=== PATIENT | male | born 1950 | race Caucasian/White ===

== ENCOUNTER 2018-01-04 09:32 | Outpatient (CLI) | payer MEDICARE, OTHER ==
[~2018-01-04] VITALS: Ht 172.7 cm; Wt 72.6 kg
[2018-01-04] VITALS (12 sets, daily range): BP systolic 107–145; BP diastolic 63–79
[~2018-01-04 09:32] MED LIST: AMIO200T4 PO; ASPI-482 PO; ASPI325T11 PO; ASPI325T8 PO; BUPR150T9 PO; CLOP75TA57 PO; EZET10TA18 PO; FERR325T72 PO; FURO-68 PO; IODIXANOL 320 MG/ML 100 ML VIAL. ONE; LIDOCAINE 1% Multi-Dose 50 ML VIAL. ONE; LISI-130 PO; METO-239 PO; METO25TA2 PO; NAPR-634 PO; NITR0.4T22 SL; OMEG1CAP28 PO; OMEG1CAP52 PO; OXYC-323 PO; POTA20TA12 PO; SIMV5TAB5 PO
[2018-01-04 09:53] LABS: HEMATOCRIT 51.5 % (39.0-53.0); RED BLOOD COUNT 5.29 x10^6/uL (4.30-5.70); RED CELL DISTRIBUTION WIDTH 13.8 % (11.5-14.5); WHITE BLOOD COUNT 7.9 x10^3/uL (4.0-11.0)
[2018-01-04 10:03] LABS: PROTHROMBIN TIME PATIENT 13.1 SEC (11.7-14.0)
[2018-01-04 10:12] LABS: CALCIUM 9.1 mg/dL (8.5-10.1); CREATININE 1.1 mg/dL (0.7-1.3); GFR 66.4; POTASSIUM 4.1 mmol/L (3.5-5.1)
[2018-01-04] MEDS ORDERED: IODIXANOL 320 MG/ML 100 ML VIAL. ONE (10:21)
[2018-01-04] MEDS ORDERED: fentaNYL PF VIAL 100 MCG/2 ML VIAL ONE (11:21)
[2018-01-04] MEDS ORDERED: MIDAZOLAM HCL/PF 2 MG/2 ML VIAL. ONE (11:21)
[2018-01-04] MEDS ORDERED: LIDOCAINE 1% Multi-Dose 50 ML VIAL. INJ ONE (12:00)
[2018-01-04] MEDS ORDERED: IODIXANOL 320 MG/ML 100 ML VIAL. IART ONE (12:00)
[2018-01-04] MEDS ORDERED: HEPARIN for IV BOLUS 10,000 UNIT/10 ML VIAL. IART ONE (12:00)
[2018-01-04] MEDS ORDERED: fentaNYL PF VIAL 100 MCG/2 ML VIAL IV ONE (12:00)
[2018-01-04] MEDS ORDERED: MIDAZOLAM HCL/PF 2 MG/2 ML VIAL. IV ONE (12:00)
[2018-01-04] MEDS ORDERED: IV 1/2 NORMAL SALINE 1,000 ML IV SCH (12:15)
[2018-01-04] MEDS ORDERED: NITROGLYCERIN SUBLINGUAL 0.4 MG BOTTLE OF 25. SL PRN (12:15)
[2018-01-04] MEDS ORDERED: ACETAMINOPHEN 325 MG TABLET. PO PRN (12:15)
[2018-01-04] MEDS ORDERED: 0.9 % SODIUM CHLORIDE 10 ML DISP.SYRIN. IV PRN (12:15)
--- NOTE | 2018-01-04 12:15 | PDOC ---
MODERATE SEDATION ASSESSMENT RISKS/ALTERNATIVES Risks/Alternatives Risks and alternatives of this type of sedation and procedure discussed with: RISK/ALTERNATIVES: Patient H & P ON CHART H & P H & P on chart and reviewed for co-morbid conditions and appropriate labs. H&P ON CHART: Yes STATUS PREG STATUS ASSESSED: N/A MEDS/ALLERGIES REVIEWED Meds/Allergies Reviewed Medications and Allergies including time and route of recently administered narcotics and sedatives. MEDS/ALLERGIES REVIEWED: Yes ASA RATING ASA RATING: III AIRWAY ASSESSMENT Airway Assessment Airway patency, oral function limitations, presence of caps, crowns, dentures, partials, and ability to extend neck assessed. AIRWAY ASSESSMENT: Yes MALLAMPATI SCORE MALLAMPATI SCORE: II PRE-SEDATION ASSESSMENT PRE-SEDATION ASSESSMENT: Yes CINDA CAMARILLO MD Jan 04, 2018 12:15
--- NOTE | 2018-01-04 13:31 | CARD ---
MR#: [id number] Date of Study: 01/04/2018 Ordering Physician: CINDA VU, Referring Physician: CINDA VU Tech: RT Leatha (R) APPROVED REPORT Technologist: RT Leatha (R) Nurse: Elin Lebron R.N. Procedure(s) performed: Aortogram with bilateral lower extremity runoff Moderate sedation: 32 min INDICATION The indication(s) include : Peripheral artery disease with claudication and abnormal arterial duplex scan. PROCEDURE NARRATIVE After explaining the risks, benefits and alternative options, informed consent was obtained from madhuri ent. Patient was brought to the cardiac Field Representative/Health Education and his left groin was prepped and draped in the usu al fashion. 20 mL of 2% lidocaine was infiltrated into the skin and subcutaneous tissues for local an esthesia. Arterial access was obtained in the left common femoral artery and a 5 Yoruba sheath was in serted. 5 Yoruba pigtail catheter was used to perform aortogram with bilateral lower extremity runoff . Patient tolerated the procedure well. Hemostasis was achieved using manual compression. There were no immediate complications. The following findings were noted. FINDINGS 1. No significant stenosis involving the distal descending aorta and bilateral common iliac arteries 2. The right external iliac artery showed 40% stenosis in the distal segment. The left external matthias c artery showed 40% stenoses involving the mid and distal segments. 3. Bilateral common femoral arteries showed evidence of previous endarterectomy without any signific ant stenosis. 4. The superficial femoral arteries bilaterally a chronically and totally occluded. 5. Bilateral femoropopliteal bypass grafts are widely patent. 6. The right anterior tibial artery showed 100% chronic total occlusion in the proximal segment. The right posterior tibial artery showed 100% chronic total occlusion in the midsegment. The right peron eal artery showed 100% chronic total occlusion in the midsegment. There is very distal reconstitution of peroneal and posterior tibial arteries and also the dorsalis pedis artery via collaterals. 7. The left anterior tibial artery showed 100% chronic total occlusion in the midsegment. The left t ibioperoneal trunk showed 50% stenosis. The left posterior tibial artery showed severe diffuse diseas e in the proximal to midsegment followed by 100% chronic total occlusion in the mid to distal segment . The peroneal artery had good flow. There is distal reconstitution of the posterior tibial artery vi a collaterals. Conclusion Widely patent bilateral femoropopliteal bypass grafts without any significant inflow disease and jak re diffuse below the knee disease bilaterally as described above without any lesions that could be in tervened upon. Recommendations Optimization of medical therapy including initiation of Plavix and Pletal. Vascular risk factor modification including complete smoking cessation. Regular exercise regimen. Signed by : Cinda Vu, Electronically Approved : 01/04/2018 13:30:35
[2018-01-04] MEDS ORDERED: CLOP75TA PO (15:26)
[2018-01-04] MEDS ORDERED: CILO100T PO (15:27)
[2018-01-04] MEDS ORDERED: CILOSTAZOL 50 MG TABLET. PO SCH (21:00)
[2018-01-05] MEDS ORDERED: CLOPIDOGREL BISULFATE 75 MG TABLET PO SCH (08:00)
== END 2018-01-04 16:17 | disposition home or self-care (01) ==
LOC: CCL 09:32
PROVIDERS: ATTEND Internal Medicine Cardiovascular Disease
DX: I70.213 Atherosclerosis of native arteries of extremities with intermittent claudication, bilateral legs (principal); I70.92 Chronic total occlusion of artery of the extremities; Z88.8 Allergy status to other drugs, medicaments and biological substances
CPT/HCPCS: 36200; 36415; 75630; 80048; 85027; 85610; 99152; 99153; C1769; C1892; J1644; J2250; J3010; Q9962

== ENCOUNTER → 2018-08-13 | Outpatient (CLI) | payer MEDICARE, OTHER ==
[2018-01-04 15:30] VITALS: BP 138/73
[~2018-08-13] MED LIST changes: +CILO100T PO; +CLOP75TA PO; -IODIXANOL 320 MG/ML 100 ML VIAL. ONE; -LIDOCAINE 1% Multi-Dose 50 ML VIAL. ONE; -OXYC-323 PO; +OXYC1TAB15 PO; +SIMV5TAB14 PO; -SIMV5TAB5 PO
--- NOTE | 2018-08-13 11:27 | KCIC ---
SCAN OF ABDOMINAL AORTA History: Screening, smoker, hypertension Comparison: None. Findings: Multiple grayscale, color, duplex spectral analysis waveform images of the abdominal aorta are submitted. No abdominal aortic aneurysm is demonstrated although proximal abdominal aortic aorta was obscured by bowel gas, also limited evaluation of the mid to distal abdominal aorta due to bowel gas. There is scattered plaque of the visualized abdominal aorta. Peak systolic velocity of mid abdominal aorta was 47 cm/s, distally 60 cm/s. Right common iliac PSV 129 cm/s, left 134 cm/s. Mid abdominal aorta measured up to 1.6 cm, distally 1.5 cm. Impression: 1. No abdominal aortic aneurysm was demonstrated although abdominal aorta incompletely visualized. There is scattered plaque. Electronically signed by: Jayesh Uribe MD (08/13/2018 11:24 AM) [id number]
--- NOTE | 2018-08-13 12:15 | KCIC ---
Bilateral lower extremity arterial ultrasound History: Peripheral vascular disease, hypertension, smoker Findings: Multiple grayscale, color, and duplex spectral analysis sonographic images were acquired of the lower extremity arteries bilaterally. There are no previous similar exams. Visualized abdominal aortic caliber is within normal limits in greatest dimension 1.6 cm at mid segment. Peak systolic velocity of the abdominal aorta was about 47 cm/s near the mid segment and 60 cm/s distally. There are bilateral femoral popliteal bypass grafts which are patent, occlusion of the [place] superficial femoral arteries bilaterally. There are diffuse abnormal monophasic waveforms of the patent [place] vessels bilaterally. There is diffuse plaque bilaterally. Velocities in cm/sec: RIGHT Common femoral artery 82 Profunda femoris artery 51 Proximal SFA occluded Mid SFA occluded Distal SFA occluded Popliteal artery 42 Posterior tibial artery 68 Peroneal artery 35 Anterior tibial artery 36 Dorsalis pedis artery 23 Graft 88 proximally, 63 at mid segment, 57 distally, 82 near distal anastomosis LEFT: Common femoral artery 176 Profunda femoris artery 75 Proximal SFA occluded Mid SFA occluded Distal SFA occluded Popliteal artery not seen proximal to anastomosis with graft and likely occluded Posterior tibial artery 26 Peroneal artery 64 Anterior tibial artery 31 Dorsalis pedis artery 57 Graft 41 proximally, 54 at mid segment, 35 distally, 80 distal anastomosis Impression: 1. There are patent bilateral femoral to popliteal bypass grafts, occlusion of the [place] superficial femoral arteries bilaterally and proximal left popliteal artery. There are abnormal monophasic waveforms throughout the visualized patent [place] vessels, diffuse plaque. Electronically signed by: Jayesh Uribe MD (08/13/2018 12:12 PM) [id number]
== END | disposition home or self-care (01) ==
LOC: KCIC US 07:34
PROVIDERS: ATTEND Internal Medicine Cardiovascular Disease
DX: Z13.6 Encounter for screening for cardiovascular disorders (principal); I74.3 Embolism and thrombosis of arteries of the lower extremities; I70.0 Atherosclerosis of aorta; I10 Essential (primary) hypertension; I25.2 Old myocardial infarction; F17.200 Nicotine dependence, unspecified, uncomplicated; Z86.73 Personal history of transient ischemic attack (TIA), and cerebral infarction without residual deficits; Z95.1 Presence of aortocoronary bypass graft
CPT/HCPCS: 76770; 93925

== ENCOUNTER 2020-12-24 08:48 | Outpatient (CLI) | payer MEDICARE, OTHER ==
[~2020-12-24] VITALS: Ht 172.7 cm; Wt 75.0 kg
[2020-12-24] VITALS (12 sets, daily range): BP systolic 156–219; BP diastolic 67–102
[~2020-12-24 08:48] MED LIST changes: -AMIO200T4 PO; +AMIO200T6 PO; -EZET10TA18 PO; +EZET10TA20 PO; +LIDOCAINE 1% Multi-Dose 20 ML VIAL. ONE; +LIDOCAINE 1% PF 2 ML VIAL. ONE
[2020-12-24] MEDS ORDERED: fentaNYL PF VIAL 100 MCG/2 ML VIAL ONE (09:19)
[2020-12-24] MEDS ORDERED: MIDAZOLAM HCL/PF 2 MG/2 ML VIAL. ONE ×2 (09:19→11:24)
[2020-12-24 09:24] LABS: HEMATOCRIT 44.4 % (39.0-53.0); HEMOGLOBIN 15.3 g/dL (13.0-17.5); RED BLOOD COUNT 4.88 x10^6/uL (4.30-5.70); RED CELL DISTRIBUTION WIDTH 13.6 % (11.5-14.5); WHITE BLOOD COUNT 7.7 x10^3/uL (4.0-11.0)
[2020-12-24] MEDS ORDERED: LISI20TA18 PO (09:27)
[2020-12-24] MEDS ORDERED: ASPI-630 PO (09:27)
[2020-12-24] MEDS ORDERED: RIVA10TA PO (09:27)
[2020-12-24] MEDS ORDERED: METO25TA4 PO (09:27)
[2020-12-24] MEDS ORDERED: MIDAZOLAM HCL/PF 2 MG/2 ML VIAL. IV ONE (09:30)
[2020-12-24] MEDS ORDERED: fentaNYL PF VIAL 100 MCG/2 ML VIAL IV ONE (09:30)
[2020-12-24] MEDS ORDERED: IODIXANOL 320 MG/ML 100 ML VIAL. IART ONE (09:30)
[2020-12-24 09:33] LABS: PROTHROMBIN TIME PATIENT 12.2 SEC (11.7-14.0)
[2020-12-24] MEDS ORDERED: DIPH25CA58 PO (09:35)
[2020-12-24 09:36] LABS: CALCIUM 9.6 mg/dL (8.5-10.1); GFR 73.5; POTASSIUM 4.4 mmol/L (3.5-5.1)
[2020-12-24] MEDS ORDERED: NITROGLYCERIN 200 MCG/2 ML SYRINGE FOR CATH/VASC LAB. ONE (10:10)
[2020-12-24] MEDS ORDERED: VERAPAMIL 5 MG/2 ML VIAL. ONE ×2 (10:10→10:30)
[2020-12-24] MEDS ORDERED: HEPARIN for IV BOLUS 10,000 UNIT/10 ML VIAL. ONE (10:10)
[2020-12-24] MEDS ORDERED: HEPARIN for IV BOLUS 10,000 UNIT/10 ML VIAL. IART ONE (10:15)
[2020-12-24] MEDS ORDERED: LIDOCAINE 1% PF 2 ML VIAL. INJ ONE (10:15)
[2020-12-24] MEDS ORDERED: NITROGLYCERIN 200 MCG/2 ML SYRINGE FOR CATH/VASC LAB. IART ONE (10:15)
[2020-12-24] MEDS ORDERED: VERAPAMIL 5 MG/2 ML VIAL. IART ONE (10:15)
--- NOTE | 2020-12-24 10:30 | PDOC ---
MODERATE SEDATION ASSESSMENT RISKS/ALTERNATIVES Risks/Alternatives Risks and alternatives of this type of sedation and procedure discussed with: RISK/ALTERNATIVES: Patient H & P ON CHART H & P H & P on chart and reviewed for co-morbid conditions and appropriate labs. H&P ON CHART: Yes STATUS PREG STATUS ASSESSED: N/A MEDS/ALLERGIES REVIEWED Meds/Allergies Reviewed Medications and Allergies including time and route of recently administered narcotics and sedatives. MEDS/ALLERGIES REVIEWED: Yes ASA RATING ASA RATING: III AIRWAY ASSESSMENT Airway Assessment Airway patency, oral function limitations, presence of caps, crowns, dentures, partials, and ability to extend neck assessed. AIRWAY ASSESSMENT: Yes MALLAMPATI SCORE MALLAMPATI SCORE: II PRE-SEDATION ASSESSMENT PRE-SEDATION ASSESSMENT: Yes CINDA CAMARILLO MD Dec 24, 2020 10:30
[2020-12-24] MEDS ORDERED: LIDOCAINE 1% PF 2 ML VIAL. ONE (10:44)
[2020-12-24] MEDS ORDERED: hydrALAZINE 20 MG/ML VIAL. ONE (10:45)
[2020-12-24] MEDS ORDERED: hydrALAZINE 20 MG/ML VIAL. IVP ONE (11:00)
[2020-12-24] MEDS ORDERED: LIDOCAINE 1% Multi-Dose 20 ML VIAL. ONE (11:22)
[2020-12-24] MEDS ORDERED: LIDOCAINE 1% Multi-Dose 20 ML VIAL. INJ ONE (11:30)
[2020-12-24] MEDS ORDERED: RIVA20TA2 PO (12:50)
[2020-12-24] MEDS ORDERED: 0.9 % SODIUM CHLORIDE 10 ML DISP.SYRIN. IV PRN (14:15)
[2020-12-24] MEDS ORDERED: IV 1/2 NORMAL SALINE 1,000 ML IV SCH (14:15)
--- NOTE | 2020-12-24 14:23 | CARD ---
MR#: [id number] Date of Study: 12/24/2020 Ordering Physician: CINDA VU, Referring Physician: CINDA VU Tech: RT Rosa(R) APPROVED REPORT Technologist: RT Rosa(R) Nurse: Melissa Camargo RN Procedure(s) performed: Left heart catheterization, selective coronary angiography, selective angiogr aphy of the bypass grafts MODERATE SEDATION TIME: 70 MINUTES FLUORO TIME: 5.7 MIN DOSE:50.5 GYCM2 CONTRAST: 103CC VISI INDICATION The indication(s) include : Cardiomyopathy with recent decrease in LVEF, chronic systolic heart failu re in a patient with known history of coronary artery disease. [facility] Clinical Frailty Scale [facility] Clinical Frailty Scale: Moderately Frail Heart Failure Heart Failure: Yes If Yes, Newly Diagnosed: No If Yes, HF Type: Systolic If Yes, NYHA Class: Class II CASE TECHNIQUE IV conscious sedation was used throughout procedure with appropriate monitoring and was performed in the presence of a registered nurse who was an independent trained observer other than the physician p erforming the procedure. During this case, Fluoroscopy and low osmolar contrast were used for imaging . Specimen(s) Removed: No Estimated Blood loss: 15 cc's. PROCEDURE NARRATIVE After explaining the risk, benefits and alternative options, informed consent was obtained from patie nt. Patient was brought to the cardiac Wet Pour Supervisor and his left wrist and right groin were prepped and draped in the usual fashion. Arterial access was obtained in the left radial artery but several atte mpts to advance wire were unsuccessful despite repeated accesses, possibly secondary to stenosis/occl usion. 10 cc of 2% lidocaine was infiltrated into the skin and subcutaneous tissues of the right blanka in for local anesthesia. Arterial access was obtained and 5 Afghan sheath was inserted. 5 Afghan JL 4 and JR4 catheters were used to perform selective angiography of the left and right coronary arteri es. The 5 Afghan JR4 catheter was then used to obtain selective angiography of the left internal floyd miesha artery graft to the left anterior descending artery and the sequential saphenous vein graft to O M1 and OM 2 branches of left circumflex artery. LVEDP and transaortic gradients were measured. Left ventriculography was not performed since recent 2D echo showed LVEF 35%. Patient tolerated the proc edure well. Hemostasis was achieved using manual compression. There were no immediate complications . FINDINGS 1. Hemodynamics: Left ventricular end-diastolic pressure 11 mmHg. No pullback gradient across aorti c valve. 2. Coronary and bypass graft angiography: a. The left main coronary artery arose from the left sinus of Valsalva, was short, gave rise to the left anterior descending and left circumflex arteries and did not show any significant stenosis. b. The left anterior descending artery showed chronic in-stent total occlusion in the midsegment. c. The left circumflex artery showed 50% stenosis in the proximal segment of a small caliber first o btuse marginal branch and 40% stenosis in the proximal segment of a good caliber second obtuse margin al branch. d. The right coronary artery showed patent mid segment that was patch angioplastied (cryopreserved S V) during his CABG. The posterolateral branch showed 60% stenosis in the proximal segment. e. The sequential saphenous vein graft to the OM1 and OM 2 branches of left circumflex artery showed chronic total occlusion proximally. f. The left internal mammary artery graft to the left anterior descending artery was widely patent. Distal to the anastomosis, the hamilton LAD did not show any significant stenosis Conclusion Severe hamilton vessel coronary artery disease s/p CABG with patent STEWART to LAD, chronically occluded s equential SVG to OM/OM2 without any significant stenosis noted in hamilton LCx and patent RCA segment t hat was patch angioplastied at the time of CABG. No lesions needing intervention were noted. Recommendations Optimization of medical therapy for ischemic cardiomyopathy and repeat 2D echo in 3 months to evaluat e the need for AICD implantation. Signed by : Cinda Vu, Electronically Approved : 12/24/2020 14:23:39
== END 2020-12-24 14:44 | disposition home or self-care (01) ==
LOC: CCL 08:48
PROVIDERS: ATTEND Internal Medicine Cardiovascular Disease
DX: I25.110 Atherosclerotic heart disease of native coronary artery with unstable angina pectoris (principal); I25.5 Ischemic cardiomyopathy; I11.0 Hypertensive heart disease with heart failure; I50.9 Heart failure, unspecified; E78.00 Pure hypercholesterolemia, unspecified; J43.9 Emphysema, unspecified; M19.90 Unspecified osteoarthritis, unspecified site; Z85.828 Personal history of other malignant neoplasm of skin; Z87.891 Personal history of nicotine dependence; Z79.899 Other long term (current) drug therapy; Z79.82 Long term (current) use of aspirin; Z98.890 Other specified postprocedural states; Z88.8 Allergy status to other drugs, medicaments and biological substances; Z95.1 Presence of aortocoronary bypass graft; Z82.49 Family history of ischemic heart disease and other diseases of the circulatory system
CPT/HCPCS: 36415; 76937; 80048; 85027; 85610; 93459; 99152; 99153; C1769; C1894; J0360; J1644; J2250; J3010; J3490; Q9967